=== PATIENT | female | born 2000 | race Caucasian/White ===

== ENCOUNTER 2024-03-12 17:11 | Emergency (ER) | payer BC, SELFPAY | END 2024-03-12 19:48 | disposition home or self-care (01) | LOC: CSHERS 17:11 | DX: O21.9 Vomiting of pregnancy, unspecified (principal); O23.41 Unspecified infection of urinary tract in pregnancy, first trimester; N39.0 Urinary tract infection, site not specified; Z3A.08 8 weeks gestation of pregnancy | CPT/HCPCS: 80053; 81001; 83690; 84702; 85025; 87086; 96361; 96374; J2405 ==

== ENCOUNTER 2024-09-28 16:48 | Inpatient (IN) | payer BC ==
[2024-09-28] MEDS ORDERED: hydrALAZINE 20 MG/ML VIAL SLOW IVP PRN (17:10)
[2024-09-28] MEDS ORDERED: Lactated Ringer's 1,000 ML IV SCH (19:45)
[2024-09-28 19:52] VITALS: BMI 23.3
[2024-09-28] MEDS ORDERED: fentaNYL 50 mcg/mL 1 mL Vial SLOW IVP PRN (19:55)
[2024-09-28] MEDS ORDERED: Methylergonovine 0.2 MG/ML VIAL IM PRN (20:53)
[2024-09-28] MEDS ORDERED: Misoprostol 200 MCG TAB PR PRN (20:53)
[2024-09-28] MEDS ORDERED: Acetaminophen 500 MG TAB PO PRN (20:53)
[2024-09-28] MEDS ORDERED: Lidocaine 1% (PF) 30 ML VIAL SC PRN (20:53)
[2024-09-28] MEDS ORDERED: Promethazine HCl 25 MG/ML VIAL IM PRN ×2 (20:53→22:27)
[2024-09-28] MEDS ORDERED: Oxytocin 30 units/NS 500 ML 500 ML IV SCH ×2 (21:00)
[2024-09-28] MEDS ORDERED: Penicillin G Potassium 5 MILL.UNITS in Sodium Chloride 0.9% 100 ML IVPB SCH (21:00)
[2024-09-28] MEDS: Lactated Ringer's 1,000 ML IV SCH (21:15)
[2024-09-28] MEDS: Penicillin G Potassium 5 MILL.UNITS VIAL ONE (21:17)
[2024-09-28 21:38] LABS: Hematocrit 46.5 % (34.9-44.5); Hemoglobin 16.3 g/dL (12.0-15.5); Mean Corpuscular HGB CONC 35.1 g/dL (32.0-36.0); Mean Corpuscular Volume 88.6 fL (81.6-98.3); Mean Platelet Volume 11.4 fL (7.4-10.4); RBC Distribution Width 12.1 % (11.5-14.5); Red Blood Cell (RBC) Count 5.25 10x6/uL (3.90-5.03); White Blood Cell (WBC) Count 11.06 10x3/uL (3.5-10.5)
[2024-09-28 21:41] LABS: Platelet Count 141 10x3/uL (150-450)
[2024-09-28] MEDS: fentaNYL/Ropivacaine Epidural 100 ML ONE (22:05)
[2024-09-28 22:07] LABS: Syphilis Antibody Nonreactive (Nonreactive); Syphilis Antibody Index 0.03 S/CO (<1.00 Non-Reactive)
[2024-09-28 22:09] LABS: HBsAg Index 0.21 S/CO (0-0.99); Hep B Surf Ag - L&D Non-Reactive S/CO (NonReactive)
[2024-09-28] MEDS ORDERED: Lactated Ringer's 500 ML IV PRN (22:27)
[2024-09-28] MEDS ORDERED: Naloxone HCl 0.4 mg/ml Vial IVP PRN ×2 (22:27)
[2024-09-28] MEDS ORDERED: diphenhydrAMINE 50 MG/ML VIAL IVP PRN (22:27)
[2024-09-28] MEDS ORDERED: Acetaminophen 325 MG TAB PO PRN (22:27)
[2024-09-28] MEDS ORDERED: Moisturizing Cream (Eucerin) 113 GM JAR TOP PRN (22:27)
[2024-09-28] MEDS ORDERED: fentaNYL 2 mcg/Ropivacaine 0.2% Epidural 100 ML CADD EPIDURAL SCH (22:30)
[2024-09-28] MEDS ORDERED: Communication Order-Pharmacy FS SCH (22:30)
[2024-09-28] MEDS: ePHEDrine Sulfate 50 MG/10 ML VIAL SLOW IVP PRN (22:36)
[2024-09-28] MEDS: Terbutaline Sulfate 1 MG/ML VIAL ONE (22:40)
[2024-09-28] MEDS: Ondansetron PF 4 MG/2 ML Vial IVP PRN (23:26)
[2024-09-29] MEDS ORDERED: Penicillin G 2.5 MILL.units 2.5 MILL.UNITS in Premix 1 BAG IVPB SCH (01:00)
[2024-09-29 06:51] LABS: ALT (SGPT) 88 U/L (8-55); AST (SGOT) 61 U/L (5-34); Albumin 2.2 g/dL (3.5-5.0); Alkaline Phosphatase 242 U/L (40-110); Anion Gap 12 mmol/L (10-20); BUN (Urea Nitrogen) 7 mg/dL (7.0-18.7); Bilirubin, Total 1.1 mg/dL (0.2-1.2); Calc. Creatinine Clearance 132 mL/min (70-130); Calcium 8.4 mg/dL (7.8-10.44); Carbon Dioxide 18 mmol/L (22-29); Chloride 112 mmol/L (98-107); Estimated GFR 124; Globulin 2.9 g/dL (2.4-3.5); Glucose 81 mg/dL (70-105); Potassium 3.9 mmol/L (3.5-5.1); Protein, Total 5.1 g/dL (6.0-8.3); Sodium 138 mmol/L (136-145)
[2024-09-29] MEDS: Calcium Carbonate 500 MG ChewTAB PO SCH (16:21)
[2024-09-29] MEDS: Ibuprofen 800 MG TAB PO PRN (20:28)
[2024-09-29] MEDS: Diphenoxylate HCl/Atropine Tablet PO PRN (20:44)
[2024-09-29] MEDS: Tranexamic Acid 1,000 MG/10 ML VIAL IVP PRN (20:44)
[2024-09-29] MEDS: Carboprost 250 MCG/ML AMP IM PRN (20:52)
[2024-09-29] MEDS: Ondansetron PF 4 MG/2 ML Vial IVP PRN (21:08)
[2024-09-29] MEDS ORDERED: HYDROcodone/Acetaminophen 5/325 mg Tablet PO PRN ×3 (22:04→23:44)
[2024-09-29] MEDS: HYDROcodone/Acetaminophen 5/325 mg Tablet PO PRN (22:21)
[2024-09-29] MEDS ORDERED: Bisacodyl 10 MG SUPP PR PRN (23:44)
[2024-09-29] MEDS ORDERED: diphenhydrAMINE 25 MG CAP PO PRN (23:44)
[2024-09-29] MEDS ORDERED: Milk Of Magnesia 30 ML UDCUP PO PRN (23:44)
[2024-09-29] MEDS ORDERED: Preparation H Ointment 28 GM TUBE PR PRN (23:44)
[2024-09-29] MEDS ORDERED: hydrALAZINE 20 MG/ML VIAL SLOW IVP PRN (23:44)
[2024-09-29] MEDS ORDERED: Ondansetron PF 4 MG/2 ML Vial IVP PRN (23:44)
[2024-09-29] MEDS ORDERED: Promethazine HCl 25 MG/ML VIAL IM PRN (23:44)
[2024-09-29] MEDS ORDERED: Lanolin Ointment 7 GM TUBE TOP PRN (23:44)
[2024-09-29] MEDS ORDERED: Benzocaine-Menthol 82.5 ML CAN TOP PRN (23:44)
[2024-09-30] MEDS: Docusate 100 MG CAP PO SCH ×2 (00:39→07:47)
[2024-09-30] MEDS: Ibuprofen 800 MG TAB PO SCH ×2 (05:00→10:35)
[2024-09-30 05:44] LABS: Hematocrit 29.4 % (34.9-44.5); Hemoglobin 10.4 g/dL (12.0-15.5)
[2024-09-30] MEDS: Prenatal Vitamin 1 TAB PO SCH (07:47)
[2024-09-30] MEDS: Ferrous Sulfate 325 MG TAB PO SCH (10:34)
[2024-09-30] MEDS: Boostrix 0.5 ML (Tdap) VIAL (>/=7 yrs of age) IM ONE (10:34)
[2024-10-01] MEDS: Ibuprofen 800 MG TAB PO SCH (05:32)
[2024-10-01 07:35] VITALS: BP 130/67; TEMP 97.8
== END 2024-10-01 17:50 | disposition home or self-care (01) | DRG 806 ==
LOC: CSHLD/OP 16:48 → CSHLD 20:57 → CSHPED 09-29 23:42
PROVIDERS: ADMIT Student in an Organized Health Care Education/Training Program; ATTEND Student in an Organized Health Care Education/Training Program
PROC: 10E0XZZ Delivery of Products of Conception, External Approach (ICD-10-PCS; principal; 2024-09-28)
PROC: 10D07Z6 Extraction of Products of Conception, Vacuum, Via Natural or Artificial Opening (ICD-10-PCS; 2024-09-28)
PROC: 0HQ9XZZ Repair Perineum Skin, External Approach (ICD-10-PCS; 2024-09-28)
PROC: 10H073Z Insertion of Monitoring Electrode into Products of Conception, Via Natural or Artificial Opening (ICD-10-PCS; 2024-09-28)
DX: O30.033 Twin pregnancy, monochorionic/diamniotic, third trimester (principal); O72.1 Other immediate postpartum hemorrhage; Z37.2 Twins, both liveborn; O40.3XX2 Polyhydramnios, third trimester, fetus 2; O24.429 Gestational diabetes mellitus in childbirth, unspecified control; O70.0 First degree perineal laceration during delivery; O76 Abnormality in fetal heart rate and rhythm complicating labor and delivery; Z3A.36 36 weeks gestation of pregnancy
CPT/HCPCS: 36415; 36416; 51702; 80053; 85014; 85018; 85027; 86780; 86850; 86900; 86901; 87340; 99285; J1800; J2405; J2540; J3105; J3490; J7120